=== PATIENT | male | born 1950 | race Caucasian/White ===

== ENCOUNTER → 2017-02-15 | Outpatient (CLI) | payer MEDICARE, MEDICAID ==
[~2017-02-15] MED LIST: ACET650S21 PO; ASPI-496 PO; FINA5TAB4 PO
[2017-02-15 13:33] LABS: HEMATOCRIT 45.1 % (39.2-51.8); HEMOGLOBIN 15.3 g/dL (13.7-18.0); WHITE BLOOD COUNT 7.5 x10^3/uL (3.4-10)
[2017-02-15 13:40] LABS: BLOOD UREA NITROGEN 12 mg/dL (7-18)
[2017-02-15 13:44] LABS: ASPARTATE AMINO TRANSFERASE 10 U/L (15-37)
== END | disposition home or self-care (01) ==
LOC: STAR 12:18
PROVIDERS: ATTEND Urology
DX: Z01.818 Encounter for other preprocedural examination (principal); N40.1 Benign prostatic hyperplasia with lower urinary tract symptoms; R79.1 Abnormal coagulation profile
CPT/HCPCS: 36415; 80053; 81003; 85025; 85610; 85730; 87086; 93005

== ENCOUNTER 2017-02-24 10:44 | Observation (INO) | payer MEDICARE, MEDICAID ==
[~2017-02-24] VITALS: Ht 167.6 cm; Wt 81.6 kg
[2017-02-24 11:14] VITALS: BP 130/84
[2017-02-24] MEDS ORDERED: LACTATED RINGERS 1,000 ML IV SCH (11:16)
[2017-02-24] MEDS ORDERED: FENTANYL PF 100 MCG/2ML ONE ×3 (12:43→15:06)
[2017-02-24] MEDS ORDERED: MIDAZOLAM 1 MG/ML, 2ML ONE (12:43)
[2017-02-24] MEDS ORDERED: ROCURONIUM 10 MG/ML ONE (13:15)
[2017-02-24] MEDS ORDERED: NEOSTIGMINE 1 MG/ML, 10ML ONE (13:15)
[2017-02-24] MEDS ORDERED: PROPOFOL 10 MG/ML, 20ML ONE (13:15)
[2017-02-24] MEDS ORDERED: GLYCOPYRROLATE 0.2MG/1ML ONE (13:15)
[2017-02-24] MEDS ORDERED: DEXAMETHASONE 4 MG/ML, 1ML ONE (13:15)
[2017-02-24] MEDS ORDERED: ONDANSETRON 2MG/ML, 2ML ONE (13:15)
[2017-02-24] MEDS ORDERED: CEFAZOLIN 1,000 MG ONE (13:15)
[2017-02-24] MEDS ORDERED: SUCCINYLCHOLINE 20 MG/ML, 10ML ONE (13:15)
[2017-02-24] MEDS ORDERED: ONDANSETRON 2MG/ML, 2ML IVPush PRN (14:00)
[2017-02-24] MEDS ORDERED: ACETAMINOPHEN 325 MG TABLET PO PRN (14:00)
[2017-02-24] MEDS ORDERED: METOPROLOL 1 MG/ML, 5ML IV PRN (14:00)
[2017-02-24] MEDS ORDERED: hydrALAzine 20 MG/ML, 1ML IV PRN (14:00)
[2017-02-24] MEDS ORDERED: MEPERIDINE/PF 25MG/0.5ML IVPush PRN (14:00)
[2017-02-24] MEDS ORDERED: FENTANYL PF 100 MCG/2ML IV PRN (14:00)
[2017-02-24] MEDS ORDERED: LABETALOL 5MG/ML, 20ML IV PRN (14:00)
[2017-02-24] MEDS ORDERED: ALBUTEROL SULFATE 2.5 MG/3 ML NPPB PRN (14:00)
[2017-02-24] MEDS ORDERED: HYDROcodone/APAP 7.5-325MG/15ML UDC PO PRN (14:00)
[2017-02-24] MEDS ORDERED: MIDAZOLAM 1 MG/ML, 2ML IV PRN (14:00)
[2017-02-24] MEDS ORDERED: OXYcodone 5 MG/5 ML ORAL.SOL UDC PO PRN (14:00)
[2017-02-24] MEDS ORDERED: EPHEDRINE 50 MG/ML, 1ML IVPush PRN (14:00)
[2017-02-24] MEDS ORDERED: PROMETHAZINE 25 MG/ML, 1ML IV PRN (14:00)
[2017-02-24] MEDS ORDERED: HYDROmorphone 1 MG/ML, 1ML IV PRN (14:00)
[2017-02-24] MEDS ORDERED: ACETAMINOPHEN 650 MG/20.3 ML UDC ONE (15:06)
[2017-02-24] MEDS ORDERED: OXYcodone 5 MG/5 ML ORAL.SOL UDC ONE (15:06)
[2017-02-24 15:20] LABS: HEMATOCRIT 37.8 % (39.2-51.8); HEMOGLOBIN 12.9 g/dL (13.7-18.0)
[2017-02-24] MEDS ORDERED: OPIUM/BELLADONNA SUPP.RECT 16.2-60 MG PR PRN (16:30)
[2017-02-24] MEDS ORDERED: ONDANSETRON 2MG/ML, 2ML IV PRN (16:30)
[2017-02-24] MEDS ORDERED: MORPHINE SULFATE 4 MG/ML, 1ML IVPush PRN (16:30)
[2017-02-24] MEDS: D5%-LACTATED RINGERS 1,000 ML IV SCH (16:55)
[2017-02-24 18:58] VITALS: BP 122/85
[2017-02-24 23:00] VITALS: BP 129/68
[2017-02-24] MEDS: OXYcodone/APAP 5/325MG TABLET PO PRN (23:30)
[2017-02-25] VITALS: BP 107/61
[2017-02-25] MEDS: D5%-LACTATED RINGERS 1,000 ML IV SCH (02:04)
[2017-02-25 03:55] VITALS: BP 116/75
[2017-02-25] MEDS: OXYcodone/APAP 5/325MG TABLET PO PRN (05:44)
[2017-02-25 08:07] VITALS: BP 125/81
[2017-02-25] MEDS ORDERED: HYDR-3240 PO (13:28)
== END 2017-02-25 13:45 | disposition home or self-care (01) ==
LOC: OUT 10:44 → 4NOR 16:01 → OUT 16:04 → 4NOR 16:05 → DCLOUNGE 02-25 13:20
PROVIDERS: ADMIT Urology; ATTEND Urology
DX: N40.1 Benign prostatic hyperplasia with lower urinary tract symptoms (principal); N13.8 Other obstructive and reflux uropathy; N32.0 Bladder-neck obstruction
CPT/HCPCS: 36415; 52601; 80051; 85014; 85018; 88305; G0378; J0330; J0690; J1100; J2250; J2405; J2704; J2710; J3010; J7120; J3490; J7121